=== PATIENT | female | born 1950 | race Caucasian/White ===

== ENCOUNTER 2018-07-04 06:20 | Day surgery (SDC) | payer MEDICARE, OTHER ==
[~2018-07-04] VITALS: Ht 157.5 cm; Wt 67.1 kg
[~2018-07-04 06:20] MED LIST: AMLODIPINE BESYL5 MG PO; ASPIR 8181 MG PO; CO Q10100 MG PO; FIBER GUMMIES1 EACH PO; FLAX SEED OIL1000 MG PO; K-TAB10 MEQ PO; MELOXICAM7.5 MG PO; MULTI VITAMIN1 EACH PO
[2018-07-04] MEDS ORDERED: FUROSEMIDE20 MG PO (06:45)
[2018-07-04] MEDS ORDERED: FENOFIBRATE160 MG PO (06:48)
--- NOTE | 2018-07-04 08:44 | NUR ---
07/04/18 0844 Alyssa Valencia 0815- PT ARRIVES TO PACU ALERT AND ORIENTED. PT REPORTS NO PAIN OR NAUSEA AT THIS TIME. OXYGEN SAT MID TO HIGH 90'S ON RA. 0822- PT AWAKE ON AND OFF. CONTINUE TO REPORT NO PAIN OR NAUSEA. PT PASSING FLATUS. 0839- PT TURNED TO HER BACK AND SAT UP IN BED. REPORTS NO DIZZINESS.
--- NOTE | 2018-07-04 13:34 | NUR ---
PT RESTING IN BED, ALERT AND ORIENTED. FIRST SCOPE IN MANY YEARS, MILD ANXIETY ASSOCIATED WITH PROCEDURE. EXPLAINED TO PT WHAT TO EXPECT TODAY. PT REQUESTED PRAYER, WILL FOLLOW NEEDED
--- NOTE | 2018-07-05 09:27 | OR ---
[facility] [address], [place] [address] Signed DATE OF OPERATION: 07/04/2018 SURGEON: Darryl Alcala MD PREOPERATIVE DIAGNOSES: Surveillance colonoscopy, history of tubular adenoma. Last colonoscopy in 2010. POSTOPERATIVE DIAGNOSES: Two hyperplastic polyps, sigmoid and rectum. PROCEDURE(S) PERFORMED: Total colonoscopy to cecum with cold morcellation polypectomy x2. ANESTHESIA: Intravenous sedation, fentanyl 100 mcg, and Versed 5 mg. INDICATION: This 67-year-old white woman is a patient of Lucila Menezes MD and has seen for surveillance colonoscopy. Her last colonoscopy was in 2010. Tubular adenoma was excised at that time. She is symptom-free at this time. She has no family history of colon cancer that she is aware of. She was admitted at this time to undergo colonoscopy. Understands the risks of bleeding, infection, and perforation. FINDINGS: The prep was adequate with additional irrigation. Complete colonoscopy was undertaken to the cecum without question. There were 2 small polyps, most likely hyperplastic polyps, one in the sigmoid, the other in the rectum, both were excised completely. There were no other findings of concern. DESCRIPTION OF PROCEDURE: The patient was brought to the endoscopy suite and placed in lateral decubitus position and given intravenous sedation to the point of slurred speech and nystagmus. Digital rectal examination was normal. An Olympus video colonoscope was passed in the rectum and manipulated throughout the colon, ultimately intubating the cecum itself. Irrigation was undertaken as needed for good mucosal visualization. The appendiceal orifice and ileocecal valve were normal. Scope was withdrawn from that point in careful withdrawal of scope. Examination throughout showed no sign of abnormality until the sigmoid about 20 cm, where a small hyperplastic appearing polyp was noted, this was excised with cold morcellation Electronically Signed By: DARRYL ALCALA MD 07/05/18 0927 PATIENT NAME: ABRIL RICHARDSON OPERATIVE REPORT DATE OF : 46 REPORT #: [id number] PHYSICIAN: DARRYL ALCALA MD PCP: LUCILA MENEZES MD REPORT IS CONFIDENTIAL AND NOT TO BE RELEASED WITHOUT AUTHORIZATION [facility] [address], [place] [address] Signed technique. Further withdrawal showed another similar such polyp in the rectum. This was excised with cold morcellation technique as well. Retroflexed view was undertaken showing no other abnormality. The scope was removed. The patient was taken to the recovery room in good condition. CONCLUDING DIAGNOSIS: Polyps x2, both hyperplastic, most likely. PLAN: Recommend repeat colonoscopy in 7 years, sooner if clinically indicated. She will return to the ongoing care of Dr. Menezes. MD OLLIE Moreno/MEAGAN /[id number] cc: Dr. Lucila Menezes Copies: ~ Electronically Signed By: DARRYL ALCALA MD 07/05/18 0927 PATIENT NAME: ABRIL RICHARDSON OPERATIVE REPORT DATE OF : 46 REPORT #: [id number] PHYSICIAN: DARRYL ALCALA MD PCP: LUCILA MENEZES MD REPORT IS CONFIDENTIAL AND NOT TO BE RELEASED WITHOUT AUTHORIZATION
== END 2018-07-04 09:19 | disposition home or self-care (01) ==
LOC: OPS 06:20 → DS 06:20 → OPS 06:45 → DS 06:45 → OPS 09:19
PROVIDERS: Surgery
PROC: 0DBE8ZZ Excision of Large Intestine, Via Natural or Artificial Opening Endoscopic (ICD-10-PCS; 2018-07-04)
PROC: 0DBP8ZZ Excision of Rectum, Via Natural or Artificial Opening Endoscopic (ICD-10-PCS; principal; 2018-07-04 06:45)
DX: Z12.11 Encounter for screening for malignant neoplasm of colon (principal); K63.5 Polyp of colon; K62.1 Rectal polyp; K21.9 Gastro-esophageal reflux disease without esophagitis; I10 Essential (primary) hypertension; E03.9 Hypothyroidism, unspecified; K44.9 Diaphragmatic hernia without obstruction or gangrene; Z87.891 Personal history of nicotine dependence; Z98.890 Other specified postprocedural states; Z86.010 Personal history of colon polyps; Z88.8 Allergy status to other drugs, medicaments and biological substances
CPT/HCPCS: 99153; G0500; J0694; J2250; J3010; J7120